=== PATIENT | male | born 1990 | race Caucasian/White ===

== ENCOUNTER 2024-05-06 15:27 | Emergency (ER) | payer OTHER ==
[2024-05-06 15:40] VITALS: TEMP 98.6
--- NOTE | 2024-05-06 15:57 | ED ---
Back Pain HPI - General Chief Complaint: Back Pain/Injury Stated Complaint: spinal pain Time Seen by Provider: 05/06/24 15:52 Source: patient, RN notes reviewed Mode of arrival: ambulatory Limitations: no limitations - History of Present Illness Initial Comments: 34-year-old male presented to ER with a chief complaint of back pain. Patient states 17 years ago he fell off a porch landing on a propane tank. He states since then he has been dealing with chronic back pain. 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 He states this causes him not to be able to stand up straight due to the pain. Patient states he has been seen at [facility] and told he has lumbar radiculopathy. He has not followed up with an orthopedic quality assurance specialist at this time. He has been taking [id number] Excedrin and Advil without relief. He does report within the past couple of weeks he has noticed numbness radiating down bilateral lower extremities. This does alternate which side is affected and occurs without known triggers. He does report "leaking urine" within the past 2 weeks. He denies any bowel incontinence or emptying his bladder on himself. Denies any fevers or history of IV drug use. Denies any injuries or traumas. No other complaints. - Related Data Home Medications Medication Instructions Recorded Confirmed [id number] 1 - 2 tab PO DAILY PRN 05/06/24 05/06/24 [Excedrin] Previous Rx's Medication Instructions Recorded predniSONE 50 mg PO DAILY #5 tab 05/06/24 Allergies Allergy/AdvReac Type Severity Reaction Status Date / Time No Known Allergies Allergy Verified 05/06/24 17:57 Review of Systems ROS Statement: Those systems with pertinent positive or pertinent negative responses have been documented in the HPI. ROS Other: All systems not noted in ROS Statement are negative. Past Medical History History of Any Multi-Drug Resistant Organisms: None Reported Past Surgical History: No Surgical Hx Reported Past Psychological History: Anxiety, Depression Smoking Status: Current every day smoker Past Alcohol Use History: None Reported Past Drug Use History: Marijuana General Exam Limitations: no limitations, altered mental status General appearance: alert, in no apparent distress Neck exam: Present: normal inspection. Absent: tenderness, meningismus, lymphadenopathy Respiratory exam: Present: normal lung sounds bilaterally. Absent: respiratory distress, wheezes, rales, rhonchi, stridor Cardiovascular Exam: Present: regular rate, normal rhythm, normal heart sounds. Absent: systolic murmur, diastolic murmur, rubs, gallop, clicks Extremities exam: Present: normal inspection, full ROM, normal capillary refill. Absent: tenderness, pedal edema, joint swelling, calf tenderness Back exam: Present: normal inspection, other (No focal bony tenderness. Bilateral straight leg raise negative. Bilateral lower extremities strengths 5+.) Neurological exam: Present: alert, oriented X3, CN II-XII intact Skin exam: Present: warm, dry, intact, normal color. Absent: rash Course Vital Signs 05/06/24 05/06/24 15:37 18:47 Temperature 98.6 F Pulse Rate 79 65 Respiratory 18 16 Rate Blood Pressure 151/100 143/84 O2 Sat by Pulse 99 99 Oximetry - Reevaluation(s) Reevaluation #1: Patient refused rectal exam. Medical Decision Making - Medical Decision Making Was pt. sent in by a medical professional or institution (, PA, [employer]Y [employer]S FORMER SUPERVISOR, urgent care, hospital, or long term...) When possible be specific @ -No Did you speak to anyone other than the patient for history (EMS, parent, family, police, friend...)? What history was obtained from this source @ -No Did you review nursing and triage notes (agree or disagree)? Why? @ -I reviewed and agree with nursing and triage notes Were old charts reviewed (outside hosp., previous admission, EMS record, old EKG, old radiological studies, urgent care reports/EKG's, long term records)? Report findings @ -No old charts were reviewed Differential Diagnosis (chest pain, altered mental status, abdominal pain women, abdominal pain men, vaginal bleeding, weakness, fever, dyspnea, syncope, headache, dizziness, GI bleed, back pain, seizure, CVA, palpatations, mental health, musculoskeletal)? @ -Differential Back Pain:Strain, zoster, cauda equina syndrome, epidural abscess, vertebral osteomyelitis, discitis, fracture, subluxation, disc herniation, DJD, spinal stenosis, dissection, AAA, pancreatitis, peptic ulcer disease, pyelonephritis, kidney stone, this is not meant to be an all-inclusive list. EKG interpreted by me (3pts min.). @ -None X-rays interpreted by me (1pt min.). @ -Lumbar spine x-rays show no acute fractures. Mild multilevel disc degeneration. CT interpreted by me (1pt min.). @ -CT lumbar spine showing mild spinal canal narrowing L4-L5 secondary to broad-based disc bulge and some ligamentum flavum laxity. Minimal disc bulge L2-L3 and L3-L4 without stenosis. U/S interpreted by me (1pt. min.). @ -None done What testing was considered but not performed or refused? (CT, X-rays, U/S, labs)? Why? @ -None What meds were considered but not given or refused? Why? @ -None Did you discuss the management of the patient with other professionals (professionals i.e. , PA, [employer] FORMER SUPERVISOR, lab, RT, psych nurse, social work supervisor, hedge fund accountant, teacher, campus security officer, shoe parts caser)? Give summary @ -No Was smoking cessation discussed for >3mins.? @ -No Was critical care preformed (if so, how long)? @ -No Were there social determinants of health that impacted care today? How? (Homelessness, low income, unemployed, alcoholism, drug addiction, transportation, low edu. Level, literacy, decrease access to med. care, [facility], rehab)? @ -No Was there de-escalation of care discussed even if they declined (Discuss DNR or withdrawal of care, Hospice)? DNR status @ -No What co-morbidities impacted this encounter? (DM, HTN, Smoking, COPD, CAD, Cancer, CVA, ARF, Chemo, Hep., AIDS, mental health diagnosis, sleep apnea, morbid obesity)? @ -None Was patient admitted / discharged? Hospital course, mention meds given and route, prescriptions, significant lab abnormalities, going to OR and other pertinent info. @ -Discharged. 34 year old male to the ER with a chief complaint back pain. History and physical exam completed. Vitals within normal limits. Patient in no signs of acute distress and nontoxic-appearing. No red flag back pain symptoms to get a cauda equina syndrome. X-rays obtained showing no acute process. Patient received IM Toradol and p.o. Flexeril for symptom control in the ER. Due to patient complaining of "urinary leakage". Urinalysis obtained which is negative for signs of infection. CT lumbar spine also performed showing mild spinal canal narrowing at L4-L5 secondary to broad-based disc bulge and some ligamentum flavum laxity. Minimal disc bulge L2-L3 and L3-L4 without stenosis. Upon reevaluation, patient resting comfortably in exam room in no signs of acute distress. Results discussed with patient, all questions answered. I advised extremely close follow-up with orthopedics, referral given. Prednisone prescribed. Conservative treatment options discussed. Patient discharged in stable condition. Patient verbally expressed understanding agree with care plan. Case discussed with ED attending, Dr. Mcghee. Undiagnosed new problem with uncertain prognosis? @ -No Drug Therapy requiring intensive monitoring for toxicity (Heparin, Nitro, Insulin, Cardizem)? @ -No Were any procedures done? @ -No Diagnosis/symptom? @ -L4-L5 bulging disc Acute, or Chronic, or Acute on Chronic? @ -Acute Uncomplicated (without systemic symptoms) or Complicated (systemic symptoms)? @ -Uncomplicated Side effects of treatment? @ -No Exacerbation, Progression, or Severe Exacerbation? @ -No Poses a threat to life or bodily function? How? (Chest pain, USA, ID, pneumonia, PE, COPD, DKA, ARF, appy, cholecystitis, CVA, Diverticulitis, Homicidal, Suicidal, threat to staff... and all critical care pts) @ -No - Lab Data Lab Results 05/06/24 Range/Units 16:36 Urine Color Light Yellow Urine Appearance Clear (Clear) Urine pH 7.0 (5.0-8.0) Ur Specific [place] 1.022 (1.001-1.035) Urine Protein Negative (Negative) Urine Glucose (UA) Negative (Negative) Urine Ketones Negative (Negative) Urine Blood Negative (Negative) Urine Nitrite Negative (Negative) Urine Bilirubin Negative (Negative) Urine Urobilinogen <2.0 (<2.0) mg/dL Ur Leukocyte Esterase Negative (Negative) - Radiology Data Radiology results: report reviewed, image reviewed Disposition Clinical Impression: L4-L5 disc bulge, Bulging of lumbar intervertebral disc Disposition: HOME SELF-CARE Condition: Stable Instructions (If sedation given, give patient instructions): Chronic Back Pain (DC) Additional Instructions: Follow-up with orthopedics. Return to the ER for any new or worsening concerns. Prescriptions: predniSONE 50 mg PO DAILY #5 tab Is patient prescribed a controlled substance at d/c from ED?: No Referrals: None,Stated [Primary Care Provider] - 1-2 days Jakob Blanco DO [Doctor of Osteopathic Medicine] - 1-2 days Time of Disposition: 18:40
[2024-05-06] MEDS: CYCLOBENZAPRINE 5 MG TAB PO STA (16:15)
[2024-05-06] MEDS: KETOROLAC 15 MG/ML 1 ML VIAL IM STA (16:15)
--- NOTE | 2024-05-06 16:17 | XR ---
EXAMINATION TYPE: XR lumbar spine 2 or 3V DATE OF EXAM: 05/06/2024 4:14 PM CLINICAL INDICATION: Male, 34 years old with history of back pain; [facility] COMPARISON: None TECHNIQUE: XR lumbar spine 2 or 3V - Frontal, lateral and coned in L5-S1 lateral views of the spine. FINDINGS: No evidence of any acute osseous pathology. No evidence of loss of vertebral body height i s seen. There is normal alignment of the lumbar vertebral bodies. Scattered disc space narrowing. Mul tilevel marginal osteophyte formation throughout the visualized spine. There is facet joint arthropat hy throughout the spine. Scattered at least mild neural foraminal stenosis. IMPRESSION: 1. No acute fracture. 2. Mild multilevel disc degeneration.
[2024-05-06 17:48] LABS: Appearance,Urine Clear (Clear); Bilirubin,Urine Negative (Negative); Blood,Urine Negative (Negative); Color,Urine Light Yellow; Glucose,Urine (UA) Negative (Negative); Ketones,Urine Negative (Negative); Leukocyte Esterase,Urine Negative (Negative); Nitrite,Urine Negative (Negative); Protein,Urine Negative (Negative); Specific Gravity,Urine 1.022 (1.001-1.035); Urobilinogen,Urine <2.0 mg/dL (<2.0)
--- NOTE | 2024-05-06 18:29 | CT ---
EXAMINATION TYPE: CT lumbar spine wo con DATE OF EXAM: 05/06/2024 COMPARISON: HISTORY: Chronic lower back pain CT DLP: 744.2 mGycm CONTRAST: CT scan of the lumbar is performed , patient injected with mL of . TECHNIQUE: CT of the lumbar spine is performed on a spiral scan at 3 mm thick sections. Reconstructed images are performed in the coronal and sagittal planes. FINDINGS: T12-L1: No focal disc herniation or significant disc bulge is evident. No spinal canal stenosis or neural foraminal stenosis is present. L1-L2: No focal disc herniation or significant disc bulge is evident. No spinal canal stenosis or n eural foraminal stenosis is present L2-L3: No focal disc herniation or significant disc bulge is evident. Minimal disc bulge is present. No spinal canal stenosis or neural foraminal stenosis is present L3-L4: No focal disc herniation or significant disc bulge is evident. Minimal disc bulge present. No spinal canal stenosis or neural foraminal stenosis is present L4-L5: Disc bulging is present with moderate anterior thecal sac impression. There is some mild ligam entum flavum laxity L4-5. In conjunction with the ligamentum flavum laxity, there is some mild spinal canal narrowing. No foraminal stenosis evident. L5-S1: No focal disc herniation or significant disc bulge is evident. No spinal canal stenosis or n eural foraminal stenosis is present Vertebral alignment appears normal. Minimal disc bulging present L2-3 L3-4 with anterior thecal sac c ontact. No focal disc herniation evident. IMPRESSION: 1. Mild spinal canal narrowing L4-5 secondary to broad-based disc bulge and some ligamentum flavum la xity. 2. Minimal disc bulging L2-3 and L3-4 out stenosis.
[2024-05-06 18:48] VITALS: BP 143/84; PULSE 65; RESP 16
== END 2024-05-06 18:48 | disposition home or self-care (01) ==
LOC: EC 15:27
CPT/HCPCS: 72100; 72131; 81003; 96372; 99284